=== PATIENT | female | born 1965 | race Caucasian/White ===

== ENCOUNTER → 2020-03-20 | Outpatient (CLI) | payer BC ==
[2020-03-20 12:09] LABS: Basophils # (A) 0.1 k/uL (0-0.2); Basophils % (A) 1 %; Eosinophils % (A) 1 %; HCT 43.9 % (34.0-46.0); HGB 14.1 gm/dL (11.4-16.0); Lymphocytes # (A) 1.8 k/uL (1.0-4.8); Lymphocytes % (A) 38 %; MCH 29.9 pg (25.0-35.0); MCHC 32.1 g/dL (31.0-37.0); MCV 93.1 fL (80.0-100.0); Mean Platelet Volume 7.7; Monocytes # (A) 0.3 k/uL (0-1.0); Monocytes % (A) 5 %; Neutrophils # (A) 2.4 k/uL (1.3-7.7); Neutrophils % (A) 51 %; Platelet Count 204 k/uL (150-450); RBC 4.71 m/uL (3.80-5.40); RDW 12.8 % (11.5-15.5); WBC 4.7 k/uL (3.8-10.6)
[2020-03-20 12:21] LABS: ALT 13 U/L (4-34); AST 21 U/L (14-36); African American GFR (CKD) >90 (>60 ml/min/1.73 sqM); Albumin 4.4 g/dL (3.5-5.0); Alkaline Phosphatase 47 U/L (38-126); Anion Gap 6 mmol/L; Blood Urea Nitrogen 13 mg/dL (7-17); Calcium 9.7 mg/dL (8.4-10.2); Carbon Dioxide 29 mmol/L (22-30); Chloride 103 mmol/L (98-107); Glucose 99 mg/dL (74-99); Non-African American GFR(CKD) 90 (>60 ml/min/1.73 sqM); Potassium 4.5 mmol/L (3.5-5.1); Sodium 138 mmol/L (137-145); Total Bilirubin 0.5 mg/dL (0.2-1.3); Total Protein 6.9 g/dL (6.3-8.2)
[2020-03-20 12:57] LABS: Cholesterol 171 mg/dL (<200); HDL Cholesterol 76 mg/dL (40-60); LDL Cholesterol,Calculated 74 mg/dL (0-99); Triglycerides 103 mg/dL (<150)
[2020-03-20 19:47] LABS: Hemoglobin A1C 5.1 % (4.0-6.0)
--- NOTE | 2020-03-24 12:10 | MM ---
Reason for exam: screening (asymptomatic). Last mammogram was performed 1 year and 6 months ago. History: Patient is postmenopausal and had first child at age 38. Physical Findings: A clinical breast exam by your physician is recommended on an annual basis and results should be correlated with mammographic findings. MG 3D Screening Mammo W/Cad Bilateral CC and MLO view(s) were taken. Prior study comparison: September 21, 2018, mammogram. September 19, 2018, mammogram. January 08, 2014, bilateral MG screening mammo w CAD. January 01, 2013, bilateral digital screening mammo w/CAD. There are scattered fibroglandular densities. There is no discrete abnormality. ASSESSMENT: Negative, BI-RAD 1 RECOMMENDATION: Routine screening mammogram of both breasts in 1 year.
== END | disposition home or self-care (01) ==
LOC: RADMAMWWP 10:47
PROVIDERS: ATTEND Family Medicine
DX: Z12.31 Encounter for screening mammogram for malignant neoplasm of breast (principal); Z00.00 Encounter for general adult medical examination without abnormal findings
CPT/HCPCS: 36415; 77063; 77067; 80053; 80061; 83036; 85025

== ENCOUNTER 2023-12-09 17:04 | Observation (INO) | payer BC ==
[2023-12-09] MEDS: KETOROLAC 15 MG/ML 1 ML VIAL IM STA (17:56)
--- NOTE | 2023-12-09 18:34 | XR ---
EXAMINATION TYPE: XR knee complete LT DATE OF EXAM: 12/09/2023 COMPARISON: HISTORY: Fracture TECHNIQUE: 3 view left knee FINDINGS: There is a comminuted fracture of the proximal tibia. Longitudinal component extends to the lateral tibial plateau present tibial plateau depression may be present. Fluid fluid levels within t he joint space IMPRESSION: 1. Comminuted tibial plateau fracture with transverse component in the proximal tibial metaphysis an d longitudinal components extending towards the lateral compartment joint space.
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
[2023-12-09] MEDS: ACET/COD 300 MG/30 MG STARTER PACK 6 TAB BTL PO STA (19:01)
[2023-12-09] MEDS: IBUPROFEN 600 MG STARTER PACK 4 TAB BTL PO STA (19:01)
[2023-12-09] MEDS: HYDROmorphone 0.5 MG/0.5 ML SYRINGE IM STA (19:26)
[2023-12-09] MEDS ORDERED: HYDROmorphone 0.5 MG/0.5 ML SYRINGE IVP PRN (20:07)
[2023-12-09] MEDS ORDERED: ACETAMINOPHEN TAB 325 MG TAB PO PRN (20:07)
[2023-12-09] MEDS ORDERED: NALOXONE 0.4 MG/ML 1 ML VIAL IV PRN (20:07)
[2023-12-09 21:14] LABS: Basophils % (A) 1 %; Eosinophils % (A) 0 %; HCT 42.5 % (34.0-46.0); HGB 13.9 gm/dL (11.4-16.0); Lymphocytes # (A) 0.8 k/uL (1.0-4.8); Lymphocytes % (A) 11 %; MCH 30.1 pg (25.0-35.0); MCHC 32.8 g/dL (31.0-37.0); MCV 91.6 fL (80.0-100.0); Mean Platelet Volume 8.1; Monocytes # (A) 0.4 k/uL (0-1.0); Monocytes % (A) 6 %; Neutrophils # (A) 5.8 k/uL (1.3-7.7); Neutrophils % (A) 81 %; Platelet Count 205 k/uL (150-450); RBC 4.63 m/uL (3.80-5.40); RDW 13.3 % (11.5-15.5); WBC 7.1 k/uL (3.8-10.6)
[2023-12-09] MEDS: SODIUM CHLORIDE 0.9% 1,000 ML IV SCH (21:16)
[2023-12-09 21:24] LABS: Partial Thromboplastin Time 22.3 sec (22.0-30.0); Prothrombin Time 10.6 sec (10.0-12.5)
[2023-12-09 22:05] LABS: ALT 18 U/L (4-34); AST 28 U/L (14-36); African American GFR (CKD) >90 (>60 ml/min/1.73 sqM); Albumin 3.9 g/dL (3.5-5.0); Alkaline Phosphatase 62 U/L (38-126); Anion Gap 8 mmol/L; Blood Urea Nitrogen 17 mg/dL (7-17); Calcium 9.5 mg/dL (8.4-10.2); Carbon Dioxide 22 mmol/L (22-30); Chloride 105 mmol/L (98-107); Glucose 93 mg/dL (74-99); Non-African American GFR(CKD) 83 (>60 ml/min/1.73 sqM); Potassium 4.2 mmol/L (3.5-5.1); Sodium 135 mmol/L (137-145); Total Bilirubin 0.4 mg/dL (0.2-1.3); Total Protein 6.7 g/dL (6.3-8.2)
[2023-12-09] MEDS: KETOROLAC 15 MG/ML 1 ML VIAL IVP PRN (23:24)
[2023-12-10] MEDS: IBUPROFEN 600 MG TAB PO PRN (07:39)
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
[2023-12-10] MEDS: HYDROcodone/APAP 7.5-325MG 1 EACH TAB PO PRN (11:21)
[2023-12-10] MEDS: buPROPion XL 300 MG TAB.ER.24H PO SCH (15:10)
[2023-12-10] MEDS: HEPARIN SODIUM,PORCINE 5,000 UNIT/ML 1 ML VIAL SQ SCH (15:12)
[2023-12-10 16:09] LABS: Appearance,Urine Clear (Clear); Bacteria,Urine Rare /hpf; Bilirubin,Urine Negative (Negative); Blood,Urine Negative (Negative); Color,Urine Colorless; Glucose,Urine (UA) Negative (Negative); Ketones,Urine 1+ (Negative); Leukocyte Esterase,Urine Small (Negative); Mucus,Urine Rare /hpf; Nitrite,Urine Negative (Negative); PH, Urine 5.5 (5.0-8.0); Protein,Urine Negative (Negative); RBC,Urine <1 /hpf (0-5); Specific Gravity,Urine 1.008 (1.001-1.035); Urobilinogen,Urine <2.0 mg/dL (<2.0); WBC,Urine 5 /hpf (0-5)
--- NOTE | 2023-12-11 00:10 | CONS ---
CONSULTATION REASON FOR CONSULTATION: Advice regarding DJD and other medical issues, requested by Surgery. HISTORY OF PRESENT ILLNESS: This is a 58-year-old woman with a past medical history of multiple medical problems including DJD, exploratory laparotomy, ORIF of the right ankle, was admitted with fall and left tibial foot plateau fracture. Surgery has seen the patient, recommended splinting as well as possible surgery in [facility] at this time. There is no history of any fever, rigors, or chills at this time. The patient is basically admitted for pain control as well. PAST MEDICAL HISTORY: DJD, exploratory laparotomy, ORIF right ankle. Rest of the history and rest of the chart are also reviewed. HOME MEDICATIONS: Reviewed include vitamin D3. Doses and rest of the medications are reviewed. ALLERGIES: Spinach. FAMILY HISTORY: History of myocardial infarction, Sjogren syndrome. SOCIAL HISTORY: No history of smoking or alcohol. REVIEW OF SYSTEMS: 14-point review is negative as mentioned. PHYSICAL EXAMINATION: VITAL SIGNS: Pulse is 90, blood pressure 140/70, respirations 18. CHEST: Clear to auscultation. CARDIOVASCULAR: S1, S2 muffled. ABDOMEN: Soft. EXTREMITIES: Legs status post left fracture. LABORATORY DATA: Normal except sodium 135. ASSESSMENT: 1. Status post left tibial plateau fracture with pain. 2. Mild hyponatremia. 3. History of open reduction and internal fixation of the right ankle. 4. History of exploratory laparotomy. RECOMMENDATIONS AND DISCUSSION: I recommend to continue current management and symptomatic treatment. Resume home medications, pain management. Recommend close followup with her primary physician and rest of the plan per Orthopedic Surgery. Further recommendations to follow. MMODL / IJN: [id number] /
[2023-12-11] MEDS: CHOLECALCIFEROL 25 MCG (1000 IU) TABLET PO SCH (07:55)
[2023-12-11] MEDS: CALCIUM CARBONATE 500 MG CHEWABLE PO SCH (07:55)
[2023-12-11] MEDS: MULTIVITAMINS, THERA 1 EACH TAB PO SCH (07:55)
--- NOTE | 2023-12-11 09:49 | P.PN ---
Subjective Progress Note Date: 12/11/23 Principal diagnosis: Fall with Trauma Left lower extremity pain Patient seen and examined this morning. Patient is resting comfortably in bed. She reports her pain is controlled at this time on current medication. She does report increased left lower extremity pain with activity. Patient has been up to bedside commode x1 assist. Physical therapy should be in to work with patient today. Script for walker and bedside commode has been placed in chart. Case management has been consulted. Continue to encourage patient to be up and out of bed today, attempt to sit up in the chair. Progressing well towards discharge. Objective - Vital Signs Vital signs: Vital Signs Temp 98.2 F 12/11/23 01:45 Pulse 79 12/11/23 01:45 Resp 17 12/11/23 01:45 BP 136/68 12/11/23 01:45 Pulse Ox 97 12/11/23 01:45 FiO2 Intake & Output 12/10/23 12/11/23 12/11/23 18:59 06:59 18:59 Output Total 400 Balance -400 Output: Urine 400 Other: # Voids 3 2 # Bowel Movements 0 - Exam Inspection: Swelling to left knee. Negative for any open fracture. Sensation: Sensation is equal, symmetric, bilaterally intact throughout the upp er and lower extremities Palpation: Mild to moderate tenderness to palpation over the left knee. Range of motion: Patient does have full range of motion bilateral upper and right lower extremities on exam, Limited ROM of the left lower extremity due to pain and fracture Motor: 5/5 in all major motor groups in the bilateral upper and 5/5 in right lower extremity, 4/5 in left lower extremity Special tests: Logroll of left lower extremity reproduces pain. Neurovascular: Radial pulse intact, 2+ bilaterally. Cap refill under 3 seconds in digits upper extremities. - Labs CBC & Chem 7: 12/09/23 21:04 12/09/23 21:04 Labs: Abnormal Lab Results - Last 24 Hours (Table) 12/10/23 Range/Units 15:45 Urine Ketones 1+ H (Negative) Ur Leukocyte Esterase Small H (Negative) Urine Bacteria Rare H (None) /hpf Urine Mucus Rare H (None) /hpf Assessment and Plan Assessment: Fall with trauma Left tibial plateau fracture Urinary retention-resolved Plan: At this time we do not recommend any emergent/urgent orthopedic surgical interv ention. Patient is to follow-up with Dr. Faust's office for further evaluation in 1 week. Please do not hesitate to contact us for any further questions. 1. Consult for medical management 2. Case management consulted for discharge needs, prescription has been placed for walker and bedside commode 3. Pain management - [place] 7.5/325, Tylenol, Motrin, Ice therapy 4. DVT prophylaxis - Mechanical on RLE 5. PT/OT - Non-weightbearing of the Left lower extremity with walker or crutches. Immobilizer to remain at all times. Encourage patient to be up in chair. I reviewed and discussed this case with my attending Dr. Gallegos, whom has reviewed this chart and films and is in agreement with assessment and plan of care as outlined above. I have personally seen and examined the patient, performed the documentation and the assessment and plan as written. Number of minutes spent on the visit: 40m
--- NOTE | 2023-12-11 19:32 | PN ---
PROGRESS NOTE DATE OF SERVICE: 12/11/2023 SUBJECTIVE: This is a 58-year-old woman with a past medical present of multiple medical problems including left tibial plateau fracture. No chest pain. No palpitations. No fever. OBJECTIVE: VITAL SIGNS: Pulse 79, blood pressure n, and respirations 17. CHEST: Clear to auscultation. CARDIOVASCULAR: S1 and S2. ABDOMEN: Soft. LEGS: Status post fracture on the left side otherwise. LABORATORY DATA: Sodium is 135. UA is acceptable. ASSESSMENT: 1. Status post left tibial plateau fracture with pain. 2. Mild hyponatremia. 3. History of open reduction and internal fixation of right ankle. 4. History of exploratory laparotomy. RECOMMENDATIONS: Recommend to continue current management and continue the pain management. DVT prophylaxis. Rest of the recommendations per Orthopedic Surgery. MMODL / IJN: [id number] / MTDD
--- NOTE | 2023-12-12 07:41 | P.PN ---
Subjective Progress Note Date: 12/12/23 Principal diagnosis: Fall with Trauma Left lower extremity pain Patient seen and examined this morning. Patient is resting comfortably in bed. She reports her pain is controlled at this time on current medication. She does report increased left lower extremity pain with activity. Patient has been up to bedside commode and states she is wanting to attempt to go to restroom. She is finding it much easier to move around with walker vs crutches. Physical therapy should be in to work with patient today. Script for walker and bedside commode has been placed in chart. Case management has been consulted. Continue to encourage patient to be up and out of bed today, attempt to sit up in the chair. Patient will be discharged later today. Objective - Vital Signs Vital signs: Vital Signs Temp 98.4 F 12/12/23 02:00 Pulse 78 12/12/23 02:00 Resp 12 12/12/23 02:00 BP 143/78 12/12/23 02:00 Pulse Ox 98 12/12/23 02:00 FiO2 Intake & Output 12/11/23 12/12/23 12/12/23 18:59 06:59 18:59 Output Total 900 Balance -900 Output: Urine 900 Other: Voiding Method Bedside Commode Bedpan # Voids 1 4 - Exam Inspection: Swelling to left knee. Negative for any open fracture. Sensation: Sensation is equal, symmetric, bilaterally intact throughout the upper and lower extremities Palpation: Mild to moderate tenderness to palpation over the left knee. Range of motion: Patient does have full range of motion bilateral upper and right lower extremities on exam, Limited ROM of the left lower extremity due to pain and fracture Motor: 5/5 in all major motor groups in the bilateral upper and 5/5 in right lower extremity, 4/5 in left lower extremity Special tests: Logroll of left lower extremity reproduces pain. Neurovascular: Radial pulse intact, 2+ bilaterally. Cap refill under 3 seconds in digits upper extremities. - Labs CBC & Chem 7: 12/09/23 21:04 12/09/23 21:04 Assessment and Plan Assessment: Fall with trauma Left tibial plateau fracture Urinary retention-resolved Plan: At this time we do not recommend any emergent/urgent orthopedic surgical intervention. Patient is to follow-up with Dr. Faust's office for further evaluation in 1 week. Please do not hesitate to contact us for any further questions. 1. Consult for medical management 2. Case management consulted for discharge needs, prescription has been placed for walker and bedside commode 3. Pain management - [place] 7.5/325, Tylenol, Motrin, Ice therapy 4. DVT prophylaxis - Mechanical on RLE 5. PT/OT - Non-weightbearing of the Left lower extremity with walker or crutches. Immobilizer to remain at all times. Encourage patient to be up in chair. 6. Anticipate discharge later today 12/12/23 I reviewed and discussed this case with my attending Dr. Gallegos, whom has reviewed this chart and films and is in agreement with assessment and plan of care as outlined above. I have personally seen and examined the patient, performed the documentation and the assessment and plan as written. Number of minutes spent on the visit: 20m
--- NOTE | 2023-12-12 07:43 | P.DS ---
Providers Date of admission: 12/09/23 20:08 Expected date of discharge: 12/12/23 Attending physician: Mateus Gallegos DO Consults: 12/10/23 10:27 Consult Physician Routine Consulting Provider: Soraida Hartmann Reason/Comments: Medical Management Do you want consulting provider notified?: Yes Primary care physician: [facility] Course: Hospital Course: The patient was evaluated preoperatively and found to have the diagnosis of left tibial plateau fracture. Their pain was well controlled through their stay and they were started on appropriate medications, DVT ppx modalities, activity and dietary needs. Daily labs were monitored closely. Medicine as well as other consulting services have made their input and have helped with our team approach and multidisciplinary care. PT milestones have been met and passed and they have made the recommendation of home for this patient and treating providers agree with this care path. The patient will be discharged home with appropriate medications, instructions and follow-up information and in stable condition. Patient Condition at Discharge: Good Plan - Discharge Summary Discharge Rx Participant: Yes New Discharge Prescriptions: New Ibuprofen [Motrin] 600 mg PO Q8HR PRN #24 tab PRN Reason: Pain HYDROcodone/APAP 5-325MG [[place] 5-325] 1 tab PO Q6HR PRN #12 tab PRN Reason: Pain No Action Multivitamins, Thera [Multivitamin (formulary)] 1 tab PO DAILY Cholecalciferol [Vitamin D3 (25 Mcg = 1000 Iu)] 50 mcg PO DAILY Calcium Carbonate [Calcium] 600 mg PO DAILY buPROPion XL [Wellbutrin XL] 300 mg PO DAILY Tirzepatide [Zepbound] 2.5 mg SQ FR Discharge Medication List Multivitamins, Thera [Multivitamin (formulary)] 1 tab PO DAILY 06/11/14 [History] HYDROcodone/APAP 5-325MG [[place] 5-325] 1 tab PO Q6HR PRN #12 tab 12/09/23 [Rx] Ibuprofen [Motrin] 600 mg PO Q8HR PRN #24 tab 12/09/23 [Rx] Calcium Carbonate [Calcium] 600 mg PO DAILY 12/10/23 [History] Cholecalciferol [Vitamin D3 (25 Mcg = 1000 Iu)] 50 mcg PO DAILY 12/10/23 [Histor y] Tirzepatide [Zepbound] 2.5 mg SQ FR 12/10/23 [History] buPROPion XL [Wellbutrin XL] 300 mg PO DAILY 12/10/23 [History] Follow up Appointment(s)/Referral(s): Manoj Faust DO [REFERRING] - 1 Week Shira Arnold [Primary Care Provider] - 1-2 days Ambulatory/Diagnostic Orders: Crutches [DME.AMB1] Location: None Selected Walker [DME.AMB1] Location: None Selected Patient Instructions/Handouts: Pain Management (DC), Non Weight Bearing Activity (DC) Discharge Disposition: HOME SELF-CARE
[2023-12-12 08:47] VITALS: BP 135/82; PULSE 58; RESP 17; TEMP 97.4
--- NOTE | 2023-12-12 21:53 | PN ---
PROGRESS NOTE DATE OF SERVICE: 12/12/2023 SUBJECTIVE: This is a 58-year-old woman who was admitted after tibial plateau fracture, is improving significantly. No chest pain, no palpitations, no fever. OBJECTIVE: VITAL SIGNS: Pulse 58, blood pressure 135/80, respirations 17. CHEST: Clear to auscultation. CARDIOVASCULAR: S1, S2. ABDOMEN: Soft. LABORATORY DATA: Reviewed. ASSESSMENT: 1. Status post left tibial plateau fracture with pain. 2. Mild hyponatremia. 3. History of ORIF of the right ankle. 4. History exploratory laparotomy. RECOMMENDATIONS: Recommended to continue current medications, continue symptomatic treatment. DVT prophylaxis and recommendations per Orthopedic Surgery to attend Ras Mcdonald. MMODL / IJN: [id number] /
[2023-12-15] MEDS ORDERED: TIRZEPATIDE 2.5 MG/0.5 ML SQ SCH (09:00)
== END 2023-12-12 12:40 | disposition home or self-care (01) ==
LOC: EC 17:04 → 4SSUR 20:08
PROVIDERS: ADMIT Orthopaedic Surgery Hand Surgery; ATTEND Orthopaedic Surgery Hand Surgery
DX: S82.142A Displaced bicondylar fracture of left tibia, initial encounter for closed fracture (principal); V29.91XA Electric (assisted) bicycle rider (driver) (passenger) injured in unspecified traffic accident, initial encounter; R33.9 Retention of urine, unspecified; M19.90 Unspecified osteoarthritis, unspecified site; Z82.49 Family history of ischemic heart disease and other diseases of the circulatory system
CPT/HCPCS: 96365; 96366; 96367; 96372 ×5; 99285; 97162; 97166; 80053; 85025; 85610; 85730; 81001; 73562; G0378 ×4; J1644 ×3; J1885; J1170